=== PATIENT | female | born 1970 | race Caucasian/White ===

== ENCOUNTER → 2020-05-27 | Outpatient (CLI) | payer OTHER | LOC: WCC 08:50 | PROC: 0JBP0ZZ Excision of Left Lower Leg Subcutaneous Tissue and Fascia, Open Approach (ICD-10-PCS; principal; 2020-05-27) | DX: I83.893 Varicose veins of bilateral lower extremities with other complications (principal); L97.822 Non-pressure chronic ulcer of other part of left lower leg with fat layer exposed; R60.0 Localized edema; E66.01 Morbid (severe) obesity due to excess calories ==

== ENCOUNTER → 2020-06-03 | Outpatient (CLI) | payer OTHER | LOC: WCC 09:14 | PROC: 0JBP0ZZ Excision of Left Lower Leg Subcutaneous Tissue and Fascia, Open Approach (ICD-10-PCS; principal; 2020-06-03) | DX: I83.893 Varicose veins of bilateral lower extremities with other complications (principal); L97.822 Non-pressure chronic ulcer of other part of left lower leg with fat layer exposed; R60.0 Localized edema; E66.01 Morbid (severe) obesity due to excess calories; Z88.1 Allergy status to other antibiotic agents ==

== ENCOUNTER → 2020-06-10 | Outpatient (CLI) | payer OTHER | LOC: WCC 09:00 | DX: S81.802A Unspecified open wound, left lower leg, initial encounter (principal); I83.893 Varicose veins of bilateral lower extremities with other complications; L97.822 Non-pressure chronic ulcer of other part of left lower leg with fat layer exposed; E66.01 Morbid (severe) obesity due to excess calories; Z68.42 Body mass index [BMI] 45.0-49.9, adult; X58.XXXA Exposure to other specified factors, initial encounter ==

== ENCOUNTER → 2020-06-17 | Outpatient (CLI) | payer OTHER | LOC: WCC 09:00 | PROC: 0JBP0ZZ Excision of Left Lower Leg Subcutaneous Tissue and Fascia, Open Approach (ICD-10-PCS; principal; 2020-06-17) | DX: L97.822 Non-pressure chronic ulcer of other part of left lower leg with fat layer exposed (principal); I83.893 Varicose veins of bilateral lower extremities with other complications; R60.0 Localized edema; E66.01 Morbid (severe) obesity due to excess calories; Z88.1 Allergy status to other antibiotic agents; Z68.42 Body mass index [BMI] 45.0-49.9, adult ==

== ENCOUNTER → 2020-06-24 | Outpatient (CLI) | payer OTHER | LOC: WCC 09:00 | PROC: 0JBP0ZZ Excision of Left Lower Leg Subcutaneous Tissue and Fascia, Open Approach (ICD-10-PCS; principal; 2020-06-24) | DX: I83.028 Varicose veins of left lower extremity with ulcer other part of lower leg (principal); I83.018 Varicose veins of right lower extremity with ulcer other part of lower leg; L97.822 Non-pressure chronic ulcer of other part of left lower leg with fat layer exposed; L97.819 Non-pressure chronic ulcer of other part of right lower leg with unspecified severity; I96 Gangrene, not elsewhere classified; I87.2 Venous insufficiency (chronic) (peripheral); M19.90 Unspecified osteoarthritis, unspecified site; E66.01 Morbid (severe) obesity due to excess calories; Z68.42 Body mass index [BMI] 45.0-49.9, adult; Z79.1 Long term (current) use of non-steroidal anti-inflammatories (NSAID); Z88.1 Allergy status to other antibiotic agents ==

== ENCOUNTER → 2020-07-01 | Outpatient (CLI) | payer OTHER | LOC: WCC 09:00 | PROC: 0JBP0ZZ Excision of Left Lower Leg Subcutaneous Tissue and Fascia, Open Approach (ICD-10-PCS; principal; 2020-07-01) | DX: I83.028 Varicose veins of left lower extremity with ulcer other part of lower leg (principal); I83.018 Varicose veins of right lower extremity with ulcer other part of lower leg; L97.822 Non-pressure chronic ulcer of other part of left lower leg with fat layer exposed; L97.819 Non-pressure chronic ulcer of other part of right lower leg with unspecified severity; I96 Gangrene, not elsewhere classified; M19.90 Unspecified osteoarthritis, unspecified site; Z79.1 Long term (current) use of non-steroidal anti-inflammatories (NSAID); E66.01 Morbid (severe) obesity due to excess calories; Z68.42 Body mass index [BMI] 45.0-49.9, adult; Z88.1 Allergy status to other antibiotic agents ==

== ENCOUNTER → 2020-07-06 | Outpatient (CLI) | payer OTHER | LOC: HEART 5 13:30 | DX: I83.893 Varicose veins of bilateral lower extremities with other complications (principal); I82.412 Acute embolism and thrombosis of left femoral vein | CPT/HCPCS: 93970 ==

== ENCOUNTER → 2020-07-07 | Outpatient (CLI) | payer OTHER | LOC: WCC 09:00 | PROC: 0KBT0ZZ Excision of Left Lower Leg Muscle, Open Approach (ICD-10-PCS; principal; 2020-07-07) | DX: I83.893 Varicose veins of bilateral lower extremities with other complications (principal); L97.825 Non-pressure chronic ulcer of other part of left lower leg with muscle involvement without evidence of necrosis; R60.0 Localized edema; E66.01 Morbid (severe) obesity due to excess calories; Z88.1 Allergy status to other antibiotic agents ==

== ENCOUNTER → 2020-07-22 | Outpatient (CLI) | payer OTHER | LOC: WCC 09:00 | PROC: 0HRLXJZ Replacement of Left Lower Leg Skin with Synthetic Substitute, External Approach (ICD-10-PCS; principal; 2020-07-22) | DX: I83.028 Varicose veins of left lower extremity with ulcer other part of lower leg (principal); L97.822 Non-pressure chronic ulcer of other part of left lower leg with fat layer exposed; I83.891 Varicose veins of right lower extremity with other complications; I96 Gangrene, not elsewhere classified; I87.2 Venous insufficiency (chronic) (peripheral); M19.90 Unspecified osteoarthritis, unspecified site; E66.01 Morbid (severe) obesity due to excess calories; Z68.42 Body mass index [BMI] 45.0-49.9, adult; Z79.1 Long term (current) use of non-steroidal anti-inflammatories (NSAID); Z79.2 Long term (current) use of antibiotics; Z88.1 Allergy status to other antibiotic agents ==

== ENCOUNTER → 2020-07-29 | Outpatient (CLI) | payer OTHER | LOC: WCC 08:32 | PROC: 0HRLXJZ Replacement of Left Lower Leg Skin with Synthetic Substitute, External Approach (ICD-10-PCS; principal; 2020-07-29) | DX: I83.028 Varicose veins of left lower extremity with ulcer other part of lower leg (principal); L97.822 Non-pressure chronic ulcer of other part of left lower leg with fat layer exposed; I96 Gangrene, not elsewhere classified; I83.893 Varicose veins of bilateral lower extremities with other complications; I87.2 Venous insufficiency (chronic) (peripheral); M19.90 Unspecified osteoarthritis, unspecified site; E66.01 Morbid (severe) obesity due to excess calories; Z68.42 Body mass index [BMI] 45.0-49.9, adult; Z79.2 Long term (current) use of antibiotics; Z79.1 Long term (current) use of non-steroidal anti-inflammatories (NSAID); Z88.1 Allergy status to other antibiotic agents ==

== ENCOUNTER → 2020-08-05 | Outpatient (CLI) | payer OTHER | LOC: WCC 09:00 | PROC: 0HRLXJZ Replacement of Left Lower Leg Skin with Synthetic Substitute, External Approach (ICD-10-PCS; principal; 2020-08-05) | DX: I83.028 Varicose veins of left lower extremity with ulcer other part of lower leg (principal); I83.018 Varicose veins of right lower extremity with ulcer other part of lower leg; L97.822 Non-pressure chronic ulcer of other part of left lower leg with fat layer exposed; L97.819 Non-pressure chronic ulcer of other part of right lower leg with unspecified severity; I96 Gangrene, not elsewhere classified; M19.90 Unspecified osteoarthritis, unspecified site; I87.2 Venous insufficiency (chronic) (peripheral); E66.01 Morbid (severe) obesity due to excess calories; Z68.42 Body mass index [BMI] 45.0-49.9, adult; Z88.1 Allergy status to other antibiotic agents; Z79.2 Long term (current) use of antibiotics; Z79.1 Long term (current) use of non-steroidal anti-inflammatories (NSAID) ==

== ENCOUNTER → 2020-08-12 | Outpatient (CLI) | payer OTHER | LOC: WCC 09:00 | PROC: 0JBN0ZZ Excision of Right Lower Leg Subcutaneous Tissue and Fascia, Open Approach (ICD-10-PCS; principal; 2020-08-12) | PROC: 2W1MX6Z Compression of Left Lower Extremity using Pressure Dressing (ICD-10-PCS; principal; 2020-08-12) | DX: I83.018 Varicose veins of right lower extremity with ulcer other part of lower leg (principal); I83.028 Varicose veins of left lower extremity with ulcer other part of lower leg; L97.819 Non-pressure chronic ulcer of other part of right lower leg with unspecified severity; L97.822 Non-pressure chronic ulcer of other part of left lower leg with fat layer exposed; I96 Gangrene, not elsewhere classified; I87.2 Venous insufficiency (chronic) (peripheral); M19.90 Unspecified osteoarthritis, unspecified site; E66.01 Morbid (severe) obesity due to excess calories; Z68.42 Body mass index [BMI] 45.0-49.9, adult; Z79.1 Long term (current) use of non-steroidal anti-inflammatories (NSAID); Z79.2 Long term (current) use of antibiotics; Z88.1 Allergy status to other antibiotic agents ==

== ENCOUNTER → 2020-08-19 | Outpatient (CLI) | payer OTHER | LOC: WCC 09:00 | PROC: 0KBT0ZZ Excision of Left Lower Leg Muscle, Open Approach (ICD-10-PCS; principal; 2020-08-19) | PROC: 2W1MX6Z Compression of Left Lower Extremity using Pressure Dressing (ICD-10-PCS; 2020-08-19) | DX: I83.028 Varicose veins of left lower extremity with ulcer other part of lower leg (principal); L97.823 Non-pressure chronic ulcer of other part of left lower leg with necrosis of muscle; I83.893 Varicose veins of bilateral lower extremities with other complications; I96 Gangrene, not elsewhere classified; M19.90 Unspecified osteoarthritis, unspecified site; E66.01 Morbid (severe) obesity due to excess calories; Z68.42 Body mass index [BMI] 45.0-49.9, adult; Z79.2 Long term (current) use of antibiotics; Z79.1 Long term (current) use of non-steroidal anti-inflammatories (NSAID); I87.2 Venous insufficiency (chronic) (peripheral); Z88.1 Allergy status to other antibiotic agents ==

== ENCOUNTER → 2020-08-26 | Outpatient (CLI) | payer OTHER | LOC: WCC 09:00 | PROC: 0KBT0ZZ Excision of Left Lower Leg Muscle, Open Approach (ICD-10-PCS; principal; 2020-08-26) | PROC: 2W1RX6Z Compression of Left Lower Leg using Pressure Dressing (ICD-10-PCS; 2020-08-26) | DX: I96 Gangrene, not elsewhere classified (principal); L97.823 Non-pressure chronic ulcer of other part of left lower leg with necrosis of muscle; I87.2 Venous insufficiency (chronic) (peripheral); M19.90 Unspecified osteoarthritis, unspecified site; E66.01 Morbid (severe) obesity due to excess calories; Z68.42 Body mass index [BMI] 45.0-49.9, adult; Z79.1 Long term (current) use of non-steroidal anti-inflammatories (NSAID); Z79.2 Long term (current) use of antibiotics; Z88.1 Allergy status to other antibiotic agents ==

== ENCOUNTER → 2020-09-02 | Outpatient (CLI) | payer OTHER | LOC: WCC 09:00 | PROC: 0JBP0ZZ Excision of Left Lower Leg Subcutaneous Tissue and Fascia, Open Approach (ICD-10-PCS; principal; 2020-09-02) | PROC: 2W1MX6Z Compression of Left Lower Extremity using Pressure Dressing (ICD-10-PCS; 2020-09-02) | DX: I83.018 Varicose veins of right lower extremity with ulcer other part of lower leg (principal); I83.028 Varicose veins of left lower extremity with ulcer other part of lower leg; L97.822 Non-pressure chronic ulcer of other part of left lower leg with fat layer exposed; L97.819 Non-pressure chronic ulcer of other part of right lower leg with unspecified severity; I96 Gangrene, not elsewhere classified; I87.2 Venous insufficiency (chronic) (peripheral); M19.90 Unspecified osteoarthritis, unspecified site; Z79.2 Long term (current) use of antibiotics; Z79.1 Long term (current) use of non-steroidal anti-inflammatories (NSAID); Z68.42 Body mass index [BMI] 45.0-49.9, adult; Z88.1 Allergy status to other antibiotic agents ==

== ENCOUNTER → 2020-09-09 | Outpatient (CLI) | payer OTHER | LOC: WCC 09:00 | DX: I87.2 Venous insufficiency (chronic) (peripheral) (principal); L97.822 Non-pressure chronic ulcer of other part of left lower leg with fat layer exposed; I83.893 Varicose veins of bilateral lower extremities with other complications; R60.0 Localized edema; E66.01 Morbid (severe) obesity due to excess calories; Z68.42 Body mass index [BMI] 45.0-49.9, adult; Z88.1 Allergy status to other antibiotic agents; Z79.2 Long term (current) use of antibiotics; Z79.899 Other long term (current) drug therapy ==

== ENCOUNTER → 2020-09-16 | Outpatient (CLI) | payer OTHER | LOC: WCC 09:00 | DX: I83.893 Varicose veins of bilateral lower extremities with other complications (principal); I87.2 Venous insufficiency (chronic) (peripheral); L97.822 Non-pressure chronic ulcer of other part of left lower leg with fat layer exposed; R60.0 Localized edema; E66.01 Morbid (severe) obesity due to excess calories; Z68.42 Body mass index [BMI] 45.0-49.9, adult; Z88.1 Allergy status to other antibiotic agents; Z79.1 Long term (current) use of non-steroidal anti-inflammatories (NSAID); Z79.2 Long term (current) use of antibiotics ==

== ENCOUNTER → 2020-09-23 | Outpatient (CLI) | payer OTHER | LOC: WCC 09:30 | DX: L97.822 Non-pressure chronic ulcer of other part of left lower leg with fat layer exposed (principal); I83.893 Varicose veins of bilateral lower extremities with other complications; R60.0 Localized edema; I87.2 Venous insufficiency (chronic) (peripheral); E66.01 Morbid (severe) obesity due to excess calories | CPT/HCPCS: 97597 ==

== ENCOUNTER → 2020-10-01 | Outpatient (CLI) | payer OTHER | LOC: WCC 09:00 | DX: I83.893 Varicose veins of bilateral lower extremities with other complications (principal); I87.2 Venous insufficiency (chronic) (peripheral); L97.822 Non-pressure chronic ulcer of other part of left lower leg with fat layer exposed; R60.0 Localized edema; E66.01 Morbid (severe) obesity due to excess calories; Z68.42 Body mass index [BMI] 45.0-49.9, adult; Z88.1 Allergy status to other antibiotic agents; Z79.1 Long term (current) use of non-steroidal anti-inflammatories (NSAID) ==

== ENCOUNTER → 2020-10-08 | Outpatient (CLI) | payer OTHER | LOC: WCC 09:00 | DX: I83.893 Varicose veins of bilateral lower extremities with other complications (principal); I87.2 Venous insufficiency (chronic) (peripheral); L97.822 Non-pressure chronic ulcer of other part of left lower leg with fat layer exposed; R60.0 Localized edema; E66.01 Morbid (severe) obesity due to excess calories; Z68.42 Body mass index [BMI] 45.0-49.9, adult; Z88.1 Allergy status to other antibiotic agents; Z79.1 Long term (current) use of non-steroidal anti-inflammatories (NSAID) ==

== ENCOUNTER → 2020-10-15 | Outpatient (CLI) | payer OTHER | LOC: WCC 09:15 | DX: I83.893 Varicose veins of bilateral lower extremities with other complications (principal); I87.2 Venous insufficiency (chronic) (peripheral); L97.821 Non-pressure chronic ulcer of other part of left lower leg limited to breakdown of skin; R60.0 Localized edema; E66.01 Morbid (severe) obesity due to excess calories; Z68.42 Body mass index [BMI] 45.0-49.9, adult; Z88.1 Allergy status to other antibiotic agents; Z79.1 Long term (current) use of non-steroidal anti-inflammatories (NSAID) ==

== ENCOUNTER → 2020-10-22 | Outpatient (CLI) | payer OTHER | LOC: WCC 07:58 | DX: I83.893 Varicose veins of bilateral lower extremities with other complications (principal); L97.822 Non-pressure chronic ulcer of other part of left lower leg with fat layer exposed; R60.0 Localized edema; E66.01 Morbid (severe) obesity due to excess calories; I87.2 Venous insufficiency (chronic) (peripheral) | CPT/HCPCS: 97597 ==